=== PATIENT | male | born 1965 | race American Indian/Alaskan Native ===

== ENCOUNTER 2020-03-26 12:41 | Emergency (ER) | payer SELFPAY ==
[2020-03-26 16:02] LABS: Basophils % (Auto) 0.5 % (0.0-1.8); Eosinophils # (Auto) 0.1 K/mm3 (0.0-0.4); Eosinophils % (Auto) 0.7 % (0.0-4.3); Hematocrit 52.2 % (35.5-45.6); Hemoglobin 17.3 gm/dl (11.8-15.2); Lymphocytes # (Auto) 2.5 K/mm3 (1.2-5.4); Mean Corpuscular HGB Conc 33 % (32-34); Mean Corpuscular Volume 90 fl (84-94); Monocytes # (Auto) 0.8 K/mm3 (0.0-0.8); Platelet Count 207 K/mm3 (140-440); Red Blood Count 5.84 M/mm3 (3.65-5.03); Red Cell Distribution Width 14.9 % (13.2-15.2)
[2020-03-26 16:31] LABS: Alanine Aminotransferase 40 units/L (7-56); Albumin 4.5 g/dL (3.9-5)
[2020-03-26 16:47] LABS: Blood Urea Nitrogen 9 mg/dL (9-20); Calcium 9.5 mg/dL (8.4-10.2); Hemolysis Index 136
[2020-03-26 16:52] LABS: BUN/Creatinine Ratio 13
--- NOTE | 2020-03-26 19:20 | Emergency Department Report ---
ED General Adult HPI - General Chief complaint: Alcohol Stated complaint: ETOH Time Seen by Provider: 03/26/20 18:29 Source: patient Mode of arrival: Ambulatory Limitations: No Limitations - History of Present Illness Initial comments: The patient presents to the emergency department via EMS per request of his daughter. Patient was put to go to rehab this morning but missed his appointment due to being intoxicated per the daughter. Patient has unsteady gait due to his intoxication and slurred speech. Per EMS is found in a hotel room intoxicated. Patient was brought to the ED for further evaluation and medical clearance. Patient states that he drinks alcohol daily and is ready to go home. -: unknown Consistency: constant Improves with: none Worsens with: none Associated Symptoms: denies other symptoms Treatments Prior to Arrival: none - Related Data Allergies Allergy/AdvReac Type Severity Reaction Status Date / Time Penicillins Allergy Hives Verified 03/26/20 12:58 ED Review of Systems ROS: Stated complaint: ETOH Other details as noted in HPI Comment: All other systems reviewed and negative Constitutional: denies: chills, fever Eyes: denies: eye pain, eye discharge, vision change ENT: denies: ear pain, throat pain Respiratory: denies: cough, shortness of breath, wheezing Cardiovascular: denies: chest pain, palpitations Endocrine: no symptoms reported Gastrointestinal: denies: abdominal pain, nausea, diarrhea Genitourinary: denies: urgency, dysuria Musculoskeletal: denies: back pain, joint swelling, arthralgia Skin: denies: rash, lesions Neurological: denies: headache, weakness, paresthesias Psychiatric: denies: anxiety, depression Hematological/Lymphatic: denies: easy bleeding, easy bruising ED Past Medical Hx - Past Medical History Previous Medical History?: No - Surgical History Past Surgical History?: No ED Physical Exam - General Limitations: No Limitations General appearance: alert, in no apparent distress - Head Head exam: Present: atraumatic, normocephalic - Eye Eye exam: Present: normal appearance, PERRL, EOMI - ENT ENT exam: Present: mucous membranes moist - Neck Neck exam: Present: normal inspection - Respiratory Respiratory exam: Present: normal lung sounds bilaterally. Absent: respiratory distress - Cardiovascular Cardiovascular Exam: Present: regular rate, normal rhythm. Absent: systolic murmur, diastolic murmur, rubs, gallop - GI/Abdominal GI/Abdominal exam: Present: soft, normal bowel sounds. Absent: distended, tenderness - Rectal Rectal exam: Present: deferred - Extremities Exam Extremities exam: Present: normal inspection - Back Exam Back exam: Present: normal inspection - Neurological Exam Neurological exam: Present: alert, oriented X3, CN II-XII intact, other (Patient is alert oriented but appears to be intoxicated). Absent: motor sensory deficit - Psychiatric Psychiatric exam: Present: normal affect, normal mood - Skin Skin exam: Present: warm, dry, intact, normal color. Absent: rash ED Course Vital Signs 03/26/20 03/26/20 03/26/20 12:58 18:37 23:35 Temperature 98.0 F 98.0 F Pulse Rate 130 H 112 H 91 H Respiratory 20 18 11 L Rate Blood Pressure Blood Pressure 192/121 114/91 [Right] O2 Sat by Pulse 97 94 97 Oximetry 03/26/20 23:46 Temperature Pulse Rate 93 H Respiratory 15 Rate Blood Pressure 132/89 Blood Pressure [Right] O2 Sat by Pulse 96 Oximetry ED Medical Decision Making - Lab Data Result diagrams: 03/26/20 15:23 03/26/20 15:23 Lab Results 03/26/20 03/26/20 03/26/20 Range/Units 15:23 15:23 15:23 WBC 7.9 (4.5-11.0) K/mm3 RBC 5.84 H (3.65-5.03) M/mm3 Hgb 17.3 H (11.8-15.2) gm/dl Hct 52.2 H (35.5-45.6) % MCV 90 (84-94) fl MCH 30 (28-32) pg MCHC 33 (32-34) % RDW 14.9 (13.2-15.2) % Plt Count 207 (140-440) K/mm3 Lymph % (Auto) 31.0 (13.4-35.0) % [place] % (Auto) 10.0 H (0.0-7.3) % Eos % (Auto) 0.7 (0.0-4.3) % Baso % (Auto) 0.5 (0.0-1.8) % Lymph # (Auto) 2.5 (1.2-5.4) K/mm3 [place] # (Auto) 0.8 (0.0-0.8) K/mm3 Eos # (Auto) 0.1 (0.0-0.4) K/mm3 Baso # (Auto) 0.0 (0.0-0.1) K/mm3 Seg Neutrophils % 57.8 (40.0-70.0) % Seg Neutrophils # 4.6 (1.8-7.7) K/mm3 Sodium 144 (137-145) mmol/L Potassium 5.5 H (3.6-5.0) mmol/L Chloride 101.2 (98-107) mmol/L Carbon Dioxide 20 L (22-30) mmol/L Anion Gap 28 mmol/L BUN 9 (9-20) mg/dL Creatinine 0.7 L (0.8-1.3) mg/dL Estimated GFR > 60 ml/min BUN/Creatinine Ratio 13 % Glucose 142 H (75-100) mg/dL Calcium 9.5 (8.4-10.2) mg/dL Total Bilirubin 1.00 (0.1-1.2) mg/dL AST 60 H (5-40) units/L ALT 40 (7-56) units/L Alkaline Phosphatase 79 (35-129) units/L Total Protein 7.9 (6.3-8.2) g/dL Albumin 4.5 (3.9-5) g/dL Albumin/Globulin Ratio 1.3 % Lipase 13 (13-60) units/L Salicylates 0.6 L (2.8-20.0) mg/dL Acetaminophen (10.0-30.0) ug/mL Plasma/Serum Alcohol (0-0.07) % 03/26/20 03/26/20 Range/Units 15:23 15:23 WBC (4.5-11.0) K/mm3 RBC (3.65-5.03) M/mm3 Hgb (11.8-15.2) gm/dl Hct (35.5-45.6) % MCV (84-94) fl MCH (28-32) pg MCHC (32-34) % RDW (13.2-15.2) % Plt Count (140-440) K/mm3 Lymph % (Auto) (13.4-35.0) % [place] % (Auto) (0.0-7.3) % Eos % (Auto) (0.0-4.3) % Baso % (Auto) (0.0-1.8) % Lymph # (Auto) (1.2-5.4) K/mm3 [place] # (Auto) (0.0-0.8) K/mm3 Eos # (Auto) (0.0-0.4) K/mm3 Baso # (Auto) (0.0-0.1) K/mm3 Seg Neutrophils % (40.0-70.0) % Seg Neutrophils # (1.8-7.7) K/mm3 Sodium (137-145) mmol/L Potassium (3.6-5.0) mmol/L Chloride (98-107) mmol/L Carbon Dioxide (22-30) mmol/L Anion Gap mmol/L BUN (9-20) mg/dL Creatinine (0.8-1.3) mg/dL Estimated GFR ml/min BUN/Creatinine Ratio % Glucose (75-100) mg/dL Calcium (8.4-10.2) mg/dL Total Bilirubin (0.1-1.2) mg/dL AST (5-40) units/L ALT (7-56) units/L Alkaline Phosphatase (35-129) units/L Total Protein (6.3-8.2) g/dL Albumin (3.9-5) g/dL Albumin/Globulin Ratio % Lipase (13-60) units/L Salicylates (2.8-20.0) mg/dL Acetaminophen 5.0 L (10.0-30.0) ug/mL Plasma/Serum Alcohol 0.23 H (0-0.07) % - Medical Decision Making Mental health evaluation requested Mental health evaluation was done Patient placed on 2012 [facility] protocol initiated Patient's potassium of 5.5 is hemolyzed and was discussed with laboratory Critical care attestation.: If time is entered above; I have spent that time in minutes in the direct care of this critically ill patient, excluding procedure time. ED Disposition Clinical Impression: Alcohol intoxication Disposition: DC/TX-65 PSY HOSP/PSY UNIT Is pt being admited?: No Does the pt Need Aspirin: No Condition: Stable Referrals: PRIMARY CARE, [Primary Care Provider] - 3-5 Days
[2020-03-26] MEDS ORDERED: PHENobarbitaL 130 MG/ML VIAL IV PRN (23:12)
[2020-03-26] MEDS ORDERED: chlordiazePOXIDE 25 MG CAP PO PRN ×2 (23:12)
[2020-03-26] MEDS ORDERED: LORazepam 2 MG/ML VIAL IV PRN ×2 (23:12)
[2020-03-26] MEDS ORDERED: LORazepam 1 MG TAB PO ONE (23:13)
[2020-03-27 03:50] LABS: Bilirubin,Urine NEG (Negative); Blood,Urine SM (Negative); Color,Urine Yellow (Yellow); Hyaline Casts,Urine 4 /LPF; Mucus,Urine 3+ /HPF; Urobilinogen,Urine < 2.0 mg/dL (<2.0)
[2020-03-27 03:58] LABS: Amphetamine Screen,Urine PRESUMPTIVE NEGATIVE; Benzodiazepines Screen,Urine PRESUMPTIVE NEGATIVE; Cannabinoid Screen,Urine PRESUMPTIVE NEGATIVE; Cocaine Screen,Urine PRESUMPTIVE NEGATIVE; Methadone Screen,Urine PRESUMPTIVE NEGATIVE; Opiate Screen,Urine PRESUMPTIVE NEGATIVE
[2020-03-27] MEDS: LORazepam 2 MG/ML VIAL IV PRN ×2 (04:54→07:49)
--- NOTE | 2020-03-27 10:15 | Consultation ---
<BETTY MATHUR - Last Filed: 03/27/20 10:25> Medications and Allergies Allergies Allergy/AdvReac Type Severity Reaction Status Date / Time Penicillins Allergy Hives Verified 03/26/20 12:58 Home Medications Medication Instructions Recorded Confirmed Last Taken Type Multivitamin Tab [Multiple Vitamin 1 each PO QDAY #30 tablet 03/27/20 Unknown Rx TAB (Theragran)] chlordiazePOXIDE [Librium] 50 mg PO Q6H PRN #10 capsule 03/27/20 Unknown Rx Active Meds: Active Medications Chlordiazepoxide HCl (Librium) 50 mg PO Q1H PRN PRN Reason: CIWA-Ar 8-15 Chlordiazepoxide HCl (Librium) 100 mg PO Q1H PRN PRN Reason: CIWA-Ar 16-25 Lorazepam (Ativan) 2 mg IV Q1H PRN PRN Reason: CIWA-Ar 8-15 Last Admin: 03/27/20 07:49 Dose: 2 mg Documented by: Lorazepam (Ativan) 4 mg IV Q1H PRN PRN Reason: CIWA-Ar 16-25 Lorazepam (Ativan) 4 mg IV Q15MIN PRN PRN Reason: CIWA-Ar >25 Phenobarbital (Phenobarbital) 130 mg IV Q15M PRN PRN Reason: DT's refractory to BZD's Mental Status Exam - Vital signs Last Vital Signs Temp 98.5 F 03/27/20 01:57 Pulse 93 H 03/27/20 09:46 Resp 12 03/27/20 09:46 BP 130/86 03/27/20 09:46 Pulse Ox 98 03/27/20 09:46 Results Result Diagrams: 03/26/20 15:23 03/26/20 15:23 Abnormal lab results 03/26/20 03/26/20 03/26/20 Range/Units 15:23 15:23 15:23 RBC 5.84 H (3.65-5.03) M/mm3 Hgb 17.3 H (11.8-15.2) gm/dl Hct 52.2 H (35.5-45.6) % [place] % (Auto) 10.0 H (0.0-7.3) % Potassium 5.5 H (3.6-5.0) mmol/L Carbon Dioxide 20 L (22-30) mmol/L Creatinine 0.7 L (0.8-1.3) mg/dL Glucose 142 H (75-100) mg/dL Magnesium (1.7-2.3) mg/dL AST 60 H (5-40) units/L Salicylates 0.6 L (2.8-20.0) mg/dL Acetaminophen (10.0-30.0) ug/mL Plasma/Serum Alcohol (0-0.07) % 03/26/20 03/26/20 03/27/20 Range/Units 15:23 15:23 00:41 RBC (3.65-5.03) M/mm3 Hgb (11.8-15.2) gm/dl Hct (35.5-45.6) % [place] % (Auto) (0.0-7.3) % Potassium (3.6-5.0) mmol/L Carbon Dioxide (22-30) mmol/L Creatinine (0.8-1.3) mg/dL Glucose (75-100) mg/dL Magnesium 2.40 H (1.7-2.3) mg/dL AST (5-40) units/L Salicylates (2.8-20.0) mg/dL Acetaminophen 5.0 L (10.0-30.0) ug/mL Plasma/Serum Alcohol 0.23 H (0-0.07) % All other labs normal. ED Disposition Disposition: DC/TX-65 PSY HOSP/PSY UNIT Is pt being admited?: No Condition: Stable Prescriptions: chlordiazePOXIDE [Librium] 50 mg PO Q6H PRN #10 capsule PRN Reason: CIWA-Ar 8-15 Multivitamin Tab [Multiple Vitamin TAB (Theragran)] 1 each PO QDAY #30 tablet Referrals: PRIMARY CARE,MD [Primary Care Provider] - 3-5 Days ED Recheck HPI - General Source: patient, RN notes reviewed Mode of arrival: Ambulatory Limitations: No Limitations - Related Data Previous Rx's Medication Instructions Recorded Last Taken Type Multivitamin Tab [Multiple Vitamin 1 each PO QDAY #30 tablet 03/27/20 Unknown Rx TAB (Theragran)] chlordiazePOXIDE [Librium] 50 mg PO Q6H PRN #10 capsule 03/27/20 Unknown Rx Allergies Allergy/AdvReac Type Severity Reaction Status Date / Time Penicillins Allergy Hives Verified 03/26/20 12:58 <PHILLY MOLINA - Last Filed: 03/27/20 10:26> History of Present Illness - Reason for Consult Consult date: 03/27/20 Reason for consult: alcohol - History of Present Psychiatric Illness Diallo Mathur is a 54y/o male patient who was brought in by EMS from [facility] for intoxication. During my interview with the patient today, he is lying down in b ed. He is awake. He is lucid. He is a/o x 3. He is calm and cooperative. The patient is asking why was he still in the hospital. He says he's from "[place]." He says, "I was passing thought here to visit my mom." The patient says he "drinks about 6 glasses of wine daily." He says "but I have a center in [place]. I need to get out of here." The patient denies SI/HI or ever feeling this way. He also denies ever having a suicidal attempt. The patient denies hallucinations of any kind. He denies any past psychiatric history or being on any psych medications. The patient denies any illicit drug use or nicotine. PAST PSYCHIATRIC HISTORY Diagnoses: Denies Suicide attempts or Self-harm behavior: Denies Prior psychiatric hospitalizations: Denies Substance Abuse history: Alcohol Previous psychiatric medications tried: Denies Outpatient treatment: not currently PAST MEDICAL HISTORY: None reported Family Psychiatric History: None reported or documented SOCIAL HISTORY Marital Status: Single Living Arrangements: with family Employment Status: Employed Access to guns/weapons: Denies Education: 12th grade History of Abuse: Denies Legal History: Denies REVIEW OF SYSTEMS Constitutional: Negative for weight loss ENT: Negative for stridor Respiratory: Negative for cough or hemoptysis All other systems reviewed and are negative MENTAL STATUS EXAMINATION General Appearance and Behavior: Age appropriate, good hygiene, not wearing appropriate clothes, good eye contact, cooperative polite with questioning. Cooperation: Participating/engaged Psychomotor Behavior: Psychomotor normal Mood: "much better" Affect and affective range: Congruent with stated mood Thought Process: goal directed Thought Content: None Speech: Normal tone and pace Suicidal Ideation: Denies Homicidal Ideation: Denies Hallucinations: Denies Delusions: None elicited Impulse Control: Normal Insight and Judgment: Limited insight and judgment Memory: Normal Attention: limited Orientation: Alert, oriented Assessment and Plan Alcohol Use Disorder Plan d/c 2012 Sitter: Defer to primary Medical: Per primary Disposition: Do not recommend acute inpatient psychiatric treatment. The patient may discharge once medically cleared. She understands that if suicidal thoughts or thoughts to do harm to anyone else are to arise she is to seek immediate assistance including but not limited to the crisis hotline 911/ER. The light oil operator is to give resources for anger management, cognitive behavior therapy and outpatient, and alcohol rehabilitation programs. The patient to abstain from all alcohol use. The patient is to follow up with outpatient psych in 7 to 14 days upon discharge. Will sign off. Thank you for this consult. Consulted with Dr. Arredondo Medications and Allergies Active Meds: Active Medications Chlordiazepoxide HCl (Librium) 50 mg PO Q1H PRN PRN Reason: CIWA-Ar 8-15 Chlordiazepoxide HCl (Librium) 100 mg PO Q1H PRN PRN Reason: CIWA-Ar 16-25 Lorazepam (Ativan) 2 mg IV Q1H PRN PRN Reason: CIWA-Ar 8-15 Last Admin: 03/27/20 07:49 Dose: 2 mg Documented by: Lorazepam (Ativan) 4 mg IV Q1H PRN PRN Reason: CIWA-Ar 16-25 Lorazepam (Ativan) 4 mg IV Q15MIN PRN PRN Reason: CIWA-Ar >25 Phenobarbital (Phenobarbital) 130 mg IV Q15M PRN PRN Reason: DT's refractory to BZD's Mental Status Exam - Vital signs Last Vital Signs Temp 98.5 F 03/27/20 01:57 Pulse 93 H 03/27/20 09:46 Resp 12 03/27/20 09:46 BP 130/86 03/27/20 09:46 Pulse Ox 98 03/27/20 09:46 Results Result Diagrams: 03/26/20 15:23 03/26/20 15:23 Abnormal lab results 03/26/20 03/26/20 03/26/20 Range/Units 15:23 15:23 15:23 RBC 5.84 H (3.65-5.03) M/mm3 Hgb 17.3 H (11.8-15.2) gm/dl Hct 52.2 H (35.5-45.6) % Daniels % (Auto) 10.0 H (0.0-7.3) % Potassium 5.5 H (3.6-5.0) mmol/L Carbon Dioxide 20 L (22-30) mmol/L Creatinine 0.7 L (0.8-1.3) mg/dL Glucose 142 H (75-100) mg/dL Magnesium (1.7-2.3) mg/dL AST 60 H (5-40) units/L Salicylates 0.6 L (2.8-20.0) mg/dL Acetaminophen (10.0-30.0) ug/mL Plasma/Serum Alcohol (0-0.07) % 03/26/20 03/26/20 03/27/20 Range/Units 15:23 15:23 00:41 RBC (3.65-5.03) M/mm3 Hgb (11.8-15.2) gm/dl Hct (35.5-45.6) % Daniels % (Auto) (0.0-7.3) % Potassium (3.6-5.0) mmol/L Carbon Dioxide (22-30) mmol/L Creatinine (0.8-1.3) mg/dL Glucose (75-100) mg/dL Magnesium 2.40 H (1.7-2.3) mg/dL AST (5-40) units/L Salicylates (2.8-20.0) mg/dL Acetaminophen 5.0 L (10.0-30.0) ug/mL Plasma/Serum Alcohol 0.23 H (0-0.07) % All other labs normal.
--- NOTE | 2020-03-27 10:27 | Emergency Department Report ---
HPI - General Chief Complaint: Alcohol Time Seen by Provider: 03/26/20 18:29 - HPI HPI: Patient evaluated and in no acute distress. Patient denies any current complaints, denies feeling withdrawal. Patient is awake alert oriented x3 without complaint. Patient is aware he was intoxicated and has currently missed his flight [place] for alcohol rehabilitation. Patient intends to follow-up on next light. Patient expresses he would like to be discharged. On discharge, neuro exam nonfocal, CIWA equals 0. Patient advised return to the emergency department for any worsening symptoms. ED Past Medical Hx - Past Medical History Previous Medical History?: No - Surgical History Past Surgical History?: No - Medications Home Medications: Home Medications Medication Instructions Recorded Confirmed Last Taken Type Multivitamin Tab [Multiple Vitamin 1 each PO QDAY #30 tablet 03/27/20 Unknown Rx TAB (Theragran)] chlordiazePOXIDE [Librium] 50 mg PO Q6H PRN #10 capsule 03/27/20 Unknown Rx ED Review of Systems ROS: Stated complaint: ETOH Other details as noted in HPI Constitutional: denies: chills, fever Eyes: denies: eye pain, eye discharge, vision change ENT: denies: ear pain, throat pain Respiratory: denies: cough, shortness of breath, wheezing Cardiovascular: denies: chest pain, palpitations Endocrine: no symptoms reported Gastrointestinal: denies: abdominal pain, nausea, diarrhea Genitourinary: denies: urgency, dysuria Musculoskeletal: denies: back pain, joint swelling, arthralgia Skin: denies: rash, lesions Neurological: denies: headache, weakness, paresthesias Psychiatric: denies: anxiety, depression Hematological/Lymphatic: denies: easy bleeding, easy bruising Physical Exam - Physical Exam Vital Signs: Vital Signs 03/26/20 03/26/20 03/26/20 12:58 18:37 23:35 Temperature 98.0 F 98.0 F Pulse Rate 130 H 112 H 91 H Respiratory 20 18 11 L Rate Blood Pressure Blood Pressure 192/121 114/91 [Right] O2 Sat by Pulse 97 94 97 Oximetry 03/26/20 03/27/20 03/27/20 23:46 01:57 07:16 Temperature 98.5 F Pulse Rate 93 H 90 98 H Respiratory 15 18 14 Rate Blood Pressure 132/89 108/76 Blood Pressure 133/96 [Right] O2 Sat by Pulse 96 95 98 Oximetry 03/27/20 03/27/20 03/27/20 07:30 07:46 07:49 Temperature Pulse Rate 89 108 H 94 H Respiratory 17 17 20 Rate Blood Pressure 84/41 140/84 Blood Pressure 140/84 [Right] O2 Sat by Pulse 98 98 97 Oximetry 03/27/20 03/27/20 03/27/20 08:00 08:16 08:30 Temperature Pulse Rate 100 H 99 H 94 H Respiratory 15 13 19 Rate Blood Pressure 135/92 135/92 135/92 Blood Pressure [Right] O2 Sat by Pulse 94 97 94 Oximetry 03/27/20 03/27/20 03/27/20 08:46 09:16 09:46 Temperature Pulse Rate 89 78 93 H Respiratory 20 14 12 Rate Blood Pressure 135/92 130/86 130/86 Blood Pressure [Right] O2 Sat by Pulse 95 99 98 Oximetry ED Course Vital Signs 03/26/20 03/26/20 03/26/20 12:58 18:37 23:35 Temperature 98.0 F 98.0 F Pulse Rate 130 H 112 H 91 H Respiratory 20 18 11 L Rate Blood Pressure Blood Pressure 192/121 114/91 [Right] O2 Sat by Pulse 97 94 97 Oximetry 03/26/20 03/27/20 03/27/20 23:46 01:57 07:16 Temperature 98.5 F Pulse Rate 93 H 90 98 H Respiratory 15 18 14 Rate Blood Pressure 132/89 108/76 Blood Pressure 133/96 [Right] O2 Sat by Pulse 96 95 98 Oximetry 03/27/20 03/27/20 03/27/20 07:30 07:46 07:49 Temperature Pulse Rate 89 108 H 94 H Respiratory 17 17 20 Rate Blood Pressure 84/41 140/84 Blood Pressure 140/84 [Right] O2 Sat by Pulse 98 98 97 Oximetry 03/27/20 03/27/20 03/27/20 08:00 08:16 08:30 Temperature Pulse Rate 100 H 99 H 94 H Respiratory 15 13 19 Rate Blood Pressure 135/92 135/92 135/92 Blood Pressure [Right] O2 Sat by Pulse 94 97 94 Oximetry 03/27/20 03/27/20 03/27/20 08:46 09:16 09:46 Temperature Pulse Rate 89 78 93 H Respiratory 20 14 12 Rate Blood Pressure 135/92 130/86 130/86 Blood Pressure [Right] O2 Sat by Pulse 95 99 98 Oximetry ED Medical Decision Making - Lab Data Result diagrams: 03/26/20 15:23 03/26/20 15:23 Critical care attestation.: If time is entered above; I have spent that time in minutes in the direct care of this critically ill patient, excluding procedure time. ED Disposition Clinical Impression: Alcohol intoxication Disposition: DC-01 TO HOME OR SELFCARE Is pt being admited?: No Does the pt Need Aspirin: No Condition: Stable Prescriptions: chlordiazePOXIDE [Librium] 50 mg PO Q6H PRN #10 capsule PRN Reason: CIWA-Ar 8-15 Multivitamin Tab [Multiple Vitamin TAB (Theragran)] 1 each PO QDAY #30 tablet Referrals: PRIMARY CARE, [Primary Care Provider] - 3-5 Days
--- NOTE | 2020-03-27 10:30 | Consultation ---
History of Present Illness - Reason for Consult Consult date: 03/27/20 Reason for consult: ETOH abuse - History of Present Psychiatric Illness The patient's medical record was reviewed and the patient's progress was discussed with the nursing staff. The nurse note states the patient seemed agitated, was pacing around the room, asked for "something strong to help me sl eep". Pt asking why is he still here, states "I have a personal treatment center in [place], [place] named [facility] that'll pay for me to get there". Diallo Taylor is a 54y/o patient who was brought in by EMS from [facility] for alcohol intoxications. During my interview with the patient he is a/o x 3. He is lucid. He is calm and cooperative. He describes his mood as "fine, and much better." He is asking why he's still being held at the hospital. He says he's from "[place]" and was "flying thought visiting." The patient denies SI/HI, stating "I never was that." He also denies hallucinations of any kind. He denies illicit drug use or nicotine use. The patient also denies any past psych history or psych medications. He says he is currently at at treatment center for alcohol in [place]. The patient says he drinks about "6 glasses of wine per day." PAST PSYCHIATRIC HISTORY Diagnoses: Denies Suicide attempts or Self-harm behavior: Denies Prior psychiatric hospitalizations: Denies Substance Abuse history: Alcohol Previous psychiatric medications tried: Denies Outpatient treatment: Alcohol PAST MEDICAL HISTORY: None reported Family Psychiatric History: None reported or documented SOCIAL HISTORY Marital Status: Single Living Arrangements: alone Employment Status: Employed Access to guns/weapons: None reported Education: High school History of Abuse: None reported Legal History: Denies REVIEW OF SYSTEMS Constitutional: Negative for weight loss ENT: Negative for stridor Respiratory: Negative for cough or hemoptysis All other systems reviewed and are negative MENTAL STATUS EXAMINATION General Appearance and Behavior: Age appropriate, good hygiene, wearing appropriate clothes, good eye contact Cooperation: Participating/engaged Psychomotor Behavior: Psychomotor normal Mood: "fine, much better" Affect and affective range: Congruent with mood Thought Process: logical Thought Content: None Speech: Normal rate, volume and rhythm Suicidal Ideation: Denies Homicidal Ideation: Denies Hallucinations: Denies Delusions: None elicited Impulse Control: Normal Insight and Judgment: Limited insight and judgment Memory: Normal Attention: Normal Orientation: Alert, oriented Assessment and Plan (1) Alcohol Use Disorder TREATMENT D/c 2012 Sitter: Defer to primary Medical: Per primary Disposition: Do not recommend acute inpatient psychiatric treatment. The patient may discharge home once medically clear. He is to abstain from all alcohol use. The sitter is to provide the patient with outpatient resources for alcohol treatment facilities and outpatient psych The patient is to follow up in 7 to 14 days upon discharge Will sign off. Thank you for this consult. Medications and Allergies Allergies Allergy/AdvReac Type Severity Reaction Status Date / Time Penicillins Allergy Hives Verified 03/26/20 12:58 Home Medications Medication Instructions Recorded Confirmed Last Taken Type Multivitamin Tab [Multiple Vitamin 1 each PO QDAY #30 tablet 03/27/20 Unknown Rx TAB (Theragran)] chlordiazePOXIDE [Librium] 50 mg PO Q6H PRN #10 capsule 03/27/20 Unknown Rx Active Meds: Active Medications Chlordiazepoxide HCl (Librium) 50 mg PO Q1H PRN PRN Reason: CIWA-Ar 8-15 Chlordiazepoxide HCl (Librium) 100 mg PO Q1H PRN PRN Reason: CIWA-Ar 16-25 Lorazepam (Ativan) 2 mg IV Q1H PRN PRN Reason: CIWA-Ar 8-15 Last Admin: 03/27/20 07:49 Dose: 2 mg Documented by: Lorazepam (Ativan) 4 mg IV Q1H PRN PRN Reason: CIWA-Ar 16-25 Lorazepam (Ativan) 4 mg IV Q15MIN PRN PRN Reason: CIWA-Ar >25 Phenobarbital (Phenobarbital) 130 mg IV Q15M PRN PRN Reason: DT's refractory to BZD's Mental Status Exam - Vital signs Last Vital Signs Temp 98.5 F 03/27/20 01:57 Pulse 93 H 03/27/20 09:46 Resp 12 03/27/20 09:46 BP 130/86 03/27/20 09:46 Pulse Ox 98 03/27/20 09:46 Results Result Diagrams: 03/26/20 15:23 03/26/20 15:23 Abnormal lab results 03/26/20 03/26/20 03/26/20 Range/Units 15:23 15:23 15:23 RBC 5.84 H (3.65-5.03) M/mm3 Hgb 17.3 H (11.8-15.2) gm/dl Hct 52.2 H (35.5-45.6) % [place] % (Auto) 10.0 H (0.0-7.3) % Potassium 5.5 H (3.6-5.0) mmol/L Carbon Dioxide 20 L (22-30) mmol/L Creatinine 0.7 L (0.8-1.3) mg/dL Glucose 142 H (75-100) mg/dL Magnesium (1.7-2.3) mg/dL AST 60 H (5-40) units/L Salicylates 0.6 L (2.8-20.0) mg/dL Acetaminophen (10.0-30.0) ug/mL Plasma/Serum Alcohol (0-0.07) % 03/26/20 03/26/20 03/27/20 Range/Units 15:23 15:23 00:41 RBC (3.65-5.03) M/mm3 Hgb (11.8-15.2) gm/dl Hct (35.5-45.6) % [place] % (Auto) (0.0-7.3) % Potassium (3.6-5.0) mmol/L Carbon Dioxide (22-30) mmol/L Creatinine (0.8-1.3) mg/dL Glucose (75-100) mg/dL Magnesium 2.40 H (1.7-2.3) mg/dL AST (5-40) units/L Salicylates (2.8-20.0) mg/dL Acetaminophen 5.0 L (10.0-30.0) ug/mL Plasma/Serum Alcohol 0.23 H (0-0.07) % All other labs normal.
[2020-03-27 10:54] VITALS: BP 135/70
== END 2020-03-27 11:23 | disposition home or self-care (01) ==
LOC: ED 12:41
DX: F10.129 Alcohol abuse with intoxication, unspecified (principal); Z88.0 Allergy status to penicillin
CPT/HCPCS: 36415; 80053; 80307; 81001; 83690; 83735; 85025; 96374; 99284; J2060; 80320; G0480